=== PATIENT | female | born 1955 | race Two or more races ===

== ENCOUNTER 2021-09-23 14:23 | Emergency (ER) | payer MEDICARE ==
[~2021-09-23] VITALS: Ht 152.4 cm; Wt 131.5 kg
--- NOTE | 2021-09-23 14:40 | NUR ---
ISAURA SENT FROM [facility] FOR CT SCAN OF HEAD. HX OF INTRACRANIAL ANEUSRYM. AAOX3. DENIES VINSON, DIZZINESS, N/V. THE PATIENT IS ALERT AND ORIENTED X3. DENIES PAIN. IN ROOM AIR AND DENIES SOB. RESPIRATION REGULAR AND UNLABORED. ATTACHED TO THE MONITOR. WILL CONTINUE TO MONITOR THE PATIENT.
[2021-09-23] MEDS ORDERED: ALBU8.5H8 IH ×2 (15:53)
[2021-09-23] MEDS ORDERED: LANS30CA56 PO (15:53)
[2021-09-23] MEDS ORDERED: LACT1CAP71 PO (15:53)
[2021-09-23] MEDS ORDERED: HYDR-4303 PO (15:53)
[2021-09-23] MEDS ORDERED: CLOT15CR27 TP (15:53)
[2021-09-23] MEDS ORDERED: LEVE500T9 PO (15:53)
[2021-09-23] MEDS ORDERED: GABA-532 PO (15:53)
[2021-09-23] MEDS ORDERED: ACET-868 PO (15:53)
[2021-09-23] MEDS ORDERED: DULO30CA2 PO (15:53)
[2021-09-23] MEDS ORDERED: MULT-447 PO (15:53)
[2021-09-23] MEDS ORDERED: FERR325T24 PO (15:53)
[2021-09-23] MEDS ORDERED: METO25TA20 PO (15:53)
[2021-09-23] MEDS ORDERED: NYST15PO4 TP (15:53)
[2021-09-23] MEDS ORDERED: DICL100G26 TP (15:53)
[2021-09-23] MEDS ORDERED: ASCO-352 PO (15:53)
--- NOTE | 2021-09-23 15:55 | NUR ---
pt awke and alert transfer from [facility] here for ct scan of head
--- NOTE | 2021-09-23 16:49 | NUR ---
[facility] ETA 1800, GOING BACK TO [facility] . PRIMARY RN AWARE.
--- NOTE | 2021-09-23 17:08 | NUR ---
REPORT [place] NURSE [facility] [facility] [place].
[2021-09-23 17:45] VITALS: BP 112/64
--- NOTE | 2021-09-23 18:01 | NUR ---
Patient discharged in stable condition. Written and verbal after care instructions given. Patient verbalizes understanding of instruction.
--- NOTE | 2021-09-23 18:01 | NUR ---
REPORT GIVEN TO AMBULANCE STAFF
== END 2021-09-23 18:21 ==
LOC: ER 14:23
DX: I67.9 Cerebrovascular disease, unspecified (principal); I10 Essential (primary) hypertension; Z86.69 Personal history of other diseases of the nervous system and sense organs; Z87.09 Personal history of other diseases of the respiratory system; Z87.39 Personal history of other diseases of the musculoskeletal system and connective tissue; Z79.899 Other long term (current) drug therapy
CPT/HCPCS: 70450-TC